=== PATIENT | male | born 1990 | race Caucasian/White ===

== ENCOUNTER 2016-10-18 11:10 | Emergency (ER) | payer OTHER ==
[~2016-10-18] VITALS: Ht 180.3 cm; Wt 100.0 kg
[2016-10-18] MEDS ORDERED: KETOROLAC TROMETHAMINE 30 MG/ML VIAL IVP ONE (13:15)
[2016-10-18 15:13] VITALS: BP 110/74
[2016-10-18] MEDS ORDERED: LORazepam 2 MG/ML VIAL IVP ONE (16:15)
== END 2016-10-18 16:38 | disposition short-term general hospital (02) ==
LOC: EMS 11:12
DX: S01.111A Laceration without foreign body of right eyelid and periocular area, initial encounter (principal); S01.411A Laceration without foreign body of right cheek and temporomandibular area, initial encounter; S01.512A Laceration without foreign body of oral cavity, initial encounter; J45.909 Unspecified asthma, uncomplicated; F17.210 Nicotine dependence, cigarettes, uncomplicated; F12.90 Cannabis use, unspecified, uncomplicated; F11.90 Opioid use, unspecified, uncomplicated; F15.90 Other stimulant use, unspecified, uncomplicated; Y04.2XXA Assault by strike against or bumped into by another person, initial encounter; Y93.89 Activity, other specified; Y92.89 Other specified places as the place of occurrence of the external cause; Y99.8 Other external cause status
CPT/HCPCS: 70450; 70486; 71010; 72125; 73562; 96374; 96375; 99285; J1885; J2060

== ENCOUNTER 2022-02-04 18:32 | Emergency (ER) | payer MEDICAID, OTHER ==
[~2022-02-04] VITALS: Ht 180.3 cm; Wt 118.2 kg
[2022-02-04 18:51] VITALS: BP 133/78
[2022-02-04] MEDS ORDERED: HydrOXYzine PAMOATE 50 MG CAPSULE PO ONE (19:00)
== END 2022-02-04 20:30 ==
LOC: EMS 18:32
DX: F41.9 Anxiety disorder, unspecified (principal); F11.10 Opioid abuse, uncomplicated; F12.10 Cannabis abuse, uncomplicated; F15.10 Other stimulant abuse, uncomplicated; F17.210 Nicotine dependence, cigarettes, uncomplicated
CPT/HCPCS: 99283

== ENCOUNTER → 2025-02-14 | Emergency (ER) | payer MEDICAID ==
[~2025-02-14] VITALS: Ht 175.3 cm; Wt 140.8 kg
[~2025-02-14] MED LIST: KETAMINE HCL 50 MG/ML 10 ML VIAL ONE; MIDAZOLAM HCL 5 MG/ML VIAL ONE
[2025-02-14] MEDS: MIDAZOLAM HCL 5 MG/ML VIAL IM ONE (14:53)
[2025-02-14 15:10] VITALS: TEMP 98.6
[2025-02-14 16:53] LABS: PLATELET COUNT (AUTO) 229 K/uL (150-450); RED BLOOD CELL COUNT(AUTO) 4.75 MIL/uL (4.50-5.90); RED CELL DISTRIBUTION WIDTH 14.1 % (11.5-14.5); WHITE BLOOD COUNT (AUTO) 10.9 K/uL (4.5-11.0)
[2025-02-14 17:02] LABS: CALCIUM, TOTAL 8.5 mg/dL (8.8-10.5); CREATININE 1.05 mg/dL (0.60-1.30); GLOMERULAR FILTR. RATE CALC > 60 mL/min (>60); GLUCOSE,RANDOM 101 mg/dL (70-110); SODIUM SERUM 145 mmol/L (136-145); UREA NITROGEN, BLOOD 21 mg/dL (7-18)
[2025-02-14] MEDS: KETAMINE HCL 50 MG/ML 10 ML VIAL IM ONE (18:56)
[2025-02-14 21:11] VITALS: BP 129/82; PULSE 88; RESP 14; O2SAT 98
[2025-02-14] MEDS: SODIUM CHLORIDE 0.9% 1,000 ML IV ONE (22:54)
[2025-02-15 00:20] LABS: ALCOHOL, URINE DRUG SCREEN NEGATIVE (NEGATIVE); AMPHET/METH SCREEN,URINE NEGATIVE (NEGATIVE); BARBITURATE SCREEN, URINE NEGATIVE (NEGATIVE); CANNABINOID SCREEN,URINE NEGATIVE (NEGATIVE); COCAINE SCREEN,URINE NEGATIVE (NEGATIVE); METHADONE SCREEN, URINE POSITIVE (NEGATIVE)
[2025-02-15 00:34] LABS: PH,URINE DRUG SCREEN 5.0 (5.0-8.0)
== END | disposition still patient (30) ==
LOC: EMS 14:31
DX: F16.129 Hallucinogen abuse with intoxication, unspecified (principal); J45.909 Unspecified asthma, uncomplicated; F12.90 Cannabis use, unspecified, uncomplicated; F17.210 Nicotine dependence, cigarettes, uncomplicated; F15.90 Other stimulant use, unspecified, uncomplicated
CPT/HCPCS: 99291; 80048; 82550; 85025; 36415; 96372; 80307; G0480; J3490; J2250